=== PATIENT | female | born 2000 | race Caucasian/White ===

== ENCOUNTER 2021-08-04 03:17 | Emergency (ER) | payer SELFPAY ==
[2021-08-04] MEDS ORDERED: ERYTHROMYCIN O3.5 GM OS (03:59)
== END 2021-08-04 04:06 | disposition home or self-care (01) ==
LOC: ER1 03:17
DX: S05.02XA Injury of conjunctiva and corneal abrasion without foreign body, left eye, initial encounter (principal); Z90.89 Acquired absence of other organs; W55.03XA Scratched by cat, initial encounter
CPT/HCPCS: 99283